=== PATIENT | female | born 1995 | race African-American/Black ===

== ENCOUNTER 2022-01-13 08:00 | Outpatient (CLI) | payer OTHER ==
[2022-01-13 21:23] LABS: HCG,QUALITATIVE BLOOD NEGATIVE
== END 2022-01-13 23:59 | disposition home or self-care (01) ==
LOC: LAB.N 08:00
PROVIDERS: ATTEND Physician Assistant Medical
DX: Z32.00 Encounter for pregnancy test, result unknown (principal)
CPT/HCPCS: 36415; 84703

== ENCOUNTER 2022-08-11 18:13 | Outpatient (CLI) | payer OTHER | END 2022-08-11 18:14 | disposition EMS.NT | LOC: EMS 18:13 | DX: F41.9 Anxiety disorder, unspecified (principal); R06.02 Shortness of breath; R06.4 Hyperventilation; R20.0 Anesthesia of skin ==

== ENCOUNTER 2022-08-11 19:04 | Emergency (ER) | payer OTHER ==
[2022-08-11 19:20] VITALS: BP 146/98
[2022-08-11] MEDS ORDERED: LORazepam 1 MG TABLET PO STA (19:23)
--- NOTE | 2022-08-11 19:33 | ED Physician Documentation ---
History of Present Illness - Stated complaint Stated Complaint: ANXIETY - Chief complaint Chief Complaint: Resp - Additonal information Additional information: 27-year-old female brought by ambulance for evaluation of a panic attack. She reports she has had panic attacks in the past. Finds herself very sensitive to caffeine. She states that this evening she had eaten dinner and all of a sudden she began to feel hot and flushed and unwell and then she began having deep breathing and feeling out of control. She tried to calm herself with some slower deep breathing but was unable to thus she called 911. By the time she presents here much of the panic and worry has subsidedd. Patient reports that she took a dietary supplement today for detox. She is taking this in the past and is never caused symptoms. She denies drugs, alcohol cannabis or vaping. Patient denies thoughts of self-harm or harm to others. Currently on her menstrual cycle but would like a test just to confirm that she is not as her cycle was irregular Review of Systems Constitutional: reports: Reviewed and negative Throat: reports: Reviewed and negative Cardiac: reports: Reviewed and negative Respiratory: reports: Reviewed and negative Psychiatric: reports: Anxiety PD PAST MEDICAL HISTORY - Allergies Allergies/Adverse Reactions: Allergies Allergy/AdvReac Type Severity Reaction Status Date / Time No Known Drug Allergies Allergy Verified 08/11/22 19:20 PD ED PE NORMAL - General General: Alert and oriented X 3, No acute distress - HEENT HEENT: Atraumatic - Neck Neck: Supple, no meningeal sign, No adenopathy - Cardiac Cardiac: RRR, No murmur - Respiratory Respiratory: No respiratory distress, Clear bilaterally - Neuro Neuro: Alert and oriented X 3, supervisory clerk 2-12 intact Eye Opening: Spontaneous Motor: Obeys Commands Verbal: Oriented GCS Score: 15 - Psych Psych: No: Normal affect (Mildly anxious affect. No SI or HI. Reports that she is feeling better) Results - Vitals Vitals: Vital Signs - 24 hr 08/11/22 08/11/22 19:15 19:30 Temperature 98.6 C H Heart Rate 102 H Respiratory 18 18 Rate Blood Pressure 146/98 H O2 Saturation 100 Oxygen O2 Source Room air - Labs Labs: Laboratory Tests 08/11/22 19:30 Urine HCG, Qual NEGATIVE PD Medical Decision Making - ED course Complexity details: reviewed results, re-evaluated patient, considered differential, d/w patient, d/w family ED course: 27-year-old female presented to the emergency department after developing a panic attack at home. She is simply eaten dinner but she does admit to taking a dietary detox supplement earlier in the day. She reports that she is fairly chemically sensitive especially to things with caffeine. Here in the emergency department much of the panic had subsided by the time she arrived though she was still slightly tremulous. She was denying chest pain or shortness of air. She was given 1 mg of Ativan with full resolution of her symptoms. She had no SI or HI. She did request a urine test which was negative. Given age unlikely to be ACS. No cough or fevers doubt pneumonia. Patient is PERC negative This time advising her to discontinue use of the detox supplement. Continue Meditation for the treatment of her anxiety and panic. Follow-up with PCP Departure - Departure Disposition: Home, Self Care Clinical Impression: Panic attack Condition: Stable Record reviewed to determine appropriate education?: Yes Instructions: ED Panic Attack Comments: Serena martínez came to the emergency department today after you had a panic attack at home. By the time you arrived here much your symptoms had dissipated however we still gave you a single dose of Ativan/lorazepam. On reevaluation your symptoms gone away. You may be chemically sensitive. I do recommend that you discontinue the use of your detox medication. Return to the ER if you have worsening symptoms
[2022-08-11 19:48] LABS: HCG UR QUAL NEGATIVE
== END 2022-08-11 20:35 | disposition home or self-care (01) ==
LOC: EDUNIT# → ED 19:04
DX: F41.0 Panic disorder [episodic paroxysmal anxiety] (principal)
CPT/HCPCS: 81025; 99283; J8499

== ENCOUNTER 2023-09-14 17:31 | Outpatient (CLI) | payer OTHER ==
[2023-09-14 17:54] LABS: BILIRUBIN,URINE NEGATIVE (NEGATIVE); GLUCOSE, URINE (UA) NEGATIVE (NEGATIVE); KETONES,URINE (UA) NEGATIVE (NEGATIVE); LEUKOCYTE ESTERASE, URINE NEGATIVE (NEGATIVE); NITRITE,URINE NEGATIVE (NEGATIVE); OCCULT BLOOD,URINE NEGATIVE (NEGATIVE); PH,URINE 7.5 PH (5.0-7.5); PROTEIN,URINE NEGATIVE (NEGATIVE); UROBILINOGEN,URINE 0.2 (NORMAL) E.U./dL (NORMAL)
[2023-09-14 17:56] LABS: CLARITY,URINE CLEAR (CLEAR)
[2023-09-14 18:01] LABS: BACTERIA,URINE Rare /HPF (None Seen); RBC,URINE 0-5 /HPF (0-5); SQUAMOUS EPITHELIAL CELL,UR FEW Squamous (<= Few); WBC,URINE 0-3 /HPF (0-5)
[2023-09-14 18:20] LABS: HCG,QUALITATIVE BLOOD NEGATIVE
== END 2023-09-14 17:32 | disposition home or self-care (01) ==
LOC: LAB 17:31
PROVIDERS: ATTEND Nurse Practitioner
DX: Z32.00 Encounter for pregnancy test, result unknown (principal)
CPT/HCPCS: 36415; 81001; 84703; 87086

== ENCOUNTER 2024-01-03 08:00 | Outpatient (CLI) | payer OTHER | END 2024-01-03 23:59 | disposition home or self-care (01) | LOC: LAB.N 08:00 | PROVIDERS: ATTEND Physician Assistant Medical | DX: Z32.01 Encounter for pregnancy test, result positive (principal) | CPT/HCPCS: 36415; 84702 ==

== ENCOUNTER 2024-02-12 08:00 | Outpatient (CLI) | payer OTHER ==
[2024-02-12 17:51] LABS: BILIRUBIN,URINE NEGATIVE (NEGATIVE); GLUCOSE, URINE (UA) NEGATIVE (NEGATIVE); KETONES,URINE (UA) NEGATIVE (NEGATIVE); LEUKOCYTE ESTERASE, URINE NEGATIVE (NEGATIVE); NITRITE,URINE NEGATIVE (NEGATIVE); OCCULT BLOOD,URINE NEGATIVE (NEGATIVE); PROTEIN,URINE NEGATIVE (NEGATIVE); UROBILINOGEN,URINE 0.2 (NORMAL) E.U./dL (NORMAL)
[2024-02-12 19:02] LABS: BACTERIA,URINE Many /HPF (None Seen); CLARITY,URINE CLEAR (CLEAR); RBC,URINE None Seen /HPF (0-5); SQUAMOUS EPITHELIAL CELL,UR MANY Squamous (<= Few); WBC,URINE 0-3 /HPF (0-5)
== END 2024-02-12 23:59 | disposition home or self-care (01) ==
LOC: LAB.WC 08:00
PROVIDERS: ATTEND Obstetrics & Gynecology
DX: Z34.90 Encounter for supervision of normal pregnancy, unspecified, unspecified trimester (principal)
CPT/HCPCS: 81001; 87086

== ENCOUNTER 2024-02-22 13:41 | Outpatient (CLI) | payer OTHER ==
--- NOTE | 2024-02-22 21:03 | Ultrasound Report ---
PROCEDURE: OB 1st Trimester w/TV INDICATIONS: POSITIVE TEST OUTSIDE/PRIOR DATING DATA: Last menstrual period (LMP): 12/12/2023. LMP-based estimated date of delivery (RHODA): 09/17/2024. First dating scan (date and location): 02/22/2024. Estimated date of delivery (RHODA) from first dating scan: 09/12/2024. TECHNIQUE: Real-time scanning was performed of the fetus and maternal pelvic organs, with image documentation. Endovaginal scanning was also performed to better visualize the fetus and maternal ovaries. COMPARISON: None. FINDINGS: Intrauterine gestational sac present. Embryo: Yolk sac and pole are seen. [place]-rump length is 4.11 cm compatible with an estimated gestational age of 11 weeks 0 days. Heart rate: 167 bpm. Other: No perigestational fluid collection. Measurement variability in dating: +/- 4 weeks by LMP, +/- 7 days by mean sac diameter (use before 6 weeks gestation if crown-rump length not able to be measured), +/- 5 days by crown-rump length (6-12 weeks gestation). Maternal organs: Maternal uterine fibroids are seen measuring 2.7 x 1.5 x 2.8 cm at the mid uterus a nd 5.9 x 6.0 x 8.5 cm of the fundus. Ovaries are unremarkable. IMPRESSION: 1.Single live intrauterine with estimated gestational age of 11 weeks 0 days corresponding to an ultrasound RHODA of 09/12/2024. 2.Maternal uterine fibroids, largest of which measures up to 8.5 cm at the uterine fundus. Reviewed by: Scot Vazquez MD on 02/22/2024 9:01 PM PDT Approved by: Scot Vazquez MD on 02/22/2024 9:01 PM PDT Station ID: [id number]
== END 2024-02-22 13:42 | disposition home or self-care (01) ==
LOC: DI 13:41
PROVIDERS: ATTEND Obstetrics & Gynecology
DX: O34.11 Maternal care for benign tumor of corpus uteri, first trimester (principal); D25.9 Leiomyoma of uterus, unspecified; Z3A.11 11 weeks gestation of pregnancy

== ENCOUNTER 2024-03-08 08:00 | Outpatient (CLI) | payer OTHER ==
[2024-03-08 22:22] LABS: CHLAMYDIA TRACHOMATIS DNA NEGATIVE (NEGATIVE); NEISSERIA GONORRHOEAE DNA NEGATIVE (NEGATIVE); TRICHOMONAS VAGINALIS DNA NEGATIVE (NEGATIVE)
== END 2024-03-08 23:59 | disposition home or self-care (01) ==
LOC: LAB.WC 08:00
PROVIDERS: ATTEND Obstetrics & Gynecology
DX: Z11.3 Encounter for screening for infections with a predominantly sexual mode of transmission (principal)
CPT/HCPCS: 87491; 87591; 87661

== ENCOUNTER 2024-03-08 11:11 | Outpatient (CLI) | payer OTHER ==
[2024-03-08 11:39] LABS: BASOPHILS % (AUTO) 0.4 %; EOSINOPHILS # (AUTO) 0.2 10^3/uL (0.0-0.7); EOSINOPHILS % (AUTO) 1.9 %; HCT - HEMATOCRIT 32.7 % (37.0-47.0); HGB - HEMOGLOBIN 10.8 g/dL (12.0-16.0); MEAN CORPUSCULAR HEMOGLOBIN 25.2 pg (27.0-31.0); MEAN CORPUSCULAR VOLUME 76.4 fL (81.0-99.0); MEAN PLATELET VOLUME 9.7 fL (7.9-10.8); MONOCYTES # (AUTO) 0.3 10^3/uL (0.0-1.0); MONOCYTES % (AUTO) 3.8 %; NEUTROPHILS # (AUTO) 5.3 10^3/uL (1.5-6.6); NEUTROPHILS % (AUTO) 67.5 %; PLT - PLATELET COUNT 304 10^3/uL (130-450); RED BLOOD COUNT 4.28 10^6/uL (4.20-5.40); WHITE BLOOD COUNT 7.9 x10^3/uL (4.8-10.8)
[2024-03-09 03:11] LABS: HBsAG SCREEN Negative (Negative)
[2024-03-09 06:11] LABS: HIV SCREEN 4TH GENERATION Non Reactive (Non Reactive); RPR Non Reactive (Non Reactive)
[2024-03-09 08:11] LABS: VARICELLA-ZOSTER AB IGG <135 index (Immune >165)
[2024-03-10 03:38] LABS: HCV AB Non Reactive (Non Reactive)
== END 2024-03-08 11:12 | disposition home or self-care (01) ==
LOC: LAB 11:11
PROVIDERS: ATTEND Obstetrics & Gynecology
DX: Z34.90 Encounter for supervision of normal pregnancy, unspecified, unspecified trimester (principal)
CPT/HCPCS: 36415; 85025; 86592; 86762; 86787; 86803; 86850; 86900; 86901; 87340; 87389